=== PATIENT | female | born 1945 | race Caucasian/White ===

== ENCOUNTER → 2017-07-05 | Outpatient (CLI) | payer OTHER | LOC: M.RAD 13:29 | DX: Z12.31 Encounter for screening mammogram for malignant neoplasm of breast (principal) ==

== ENCOUNTER → 2019-06-11 | Outpatient (CLI) | payer OTHER | LOC: M.RAD 13:34 | DX: N63.10 Unspecified lump in the right breast, unspecified quadrant (principal); R92.0 Mammographic microcalcification found on diagnostic imaging of breast ==

== ENCOUNTER → 2019-06-13 | Outpatient (CLI) | payer OTHER ==
--- NOTE | 2019-06-18 18:07 | PATH ---
[address] [address] PATHOLOGY RPT PROCEDURE Name: REMIGIO MCMAHON Room: [facility] MALIHA [place]#: [id number] Admission: 06/13/19 Date of : 47 Discharge: Report #: [id number] Path Case #: [id number] [facility] Accession Number: [id number] . 01 Material submitted: . breast - RIGHT BREAST, 10:00, 5CM FROM NIPPLE. Modifiers: right, 10:00 . 01 Clinical history: . 2.85 x 2.41 x 2.62 cm 10:00 5 cm from nipple . 02 Diagnosis: Right breast, 10:00, 5 cm from nipple, image guided core biopsies: - INFILTRATING LOBULAR CARCINOMA, INTERMEDIATE GRADE, SPANNING 6 MM. SEE COMMENT. (GISELLE:pit 06/15/2019) QTP 06/15/2019 1105 Local . 02 Comment: Specimen type: Image guided core biopsies Tumor site: Right breast 10:00, 5 cm from nipple Tumor quantitation: Approximately 75% of submitted tissues Histologic type: Lobular carcinoma Histologic grade: Intermediate (II/III) Tubules, nuclei and mitoses: 3, 3, 1 LVSI: Indeterminate Microcalcifications: Not identified Markers: Breast tumor profile pending Block: A1 . The tumor infiltrates in the classic lobular fashion as individual cells between adipocytes and with "American filing" and with occasional nests. No ductal carcinoma in situ is present. A focus indeterminate for lymphovascular invasion is noted in A1. Properly controlled immunohistochemical stains performed on A1 show the neoplastic cells to have the following characteristics, supporting the diagnosis: E-cadherin: Negative Keratin Jam: Positive . A1 will be submitted for breast tumor profile studies and will be the subject of an addendum report. . Reviewed with Dr. Yinka Graham who agrees with the diagnosis. Kanchan (acting [facility] Breast Navigator) notified at approximately 1445 on 06/15/2019. (GISELLE:[facility] 06/15/2019) . 02 Addendum: . Special studies report received from [facility], [facility] [place] [address] PATHOLOGY RPT PROCEDURE Name: REMIGIO MCMAHON [id number] Admission: 06/13/19 Date of : 47 Discharge: Report #: [id number] Path Case #: [id number] [place], [address], [address], on case [id number], labeled with their number [id number], dated 06/18/2019. . Breast/Prognostic Marker Analysis . Specimen Site: Right Breast, 10:00 (Biopsy), Infiltrating Lobular Carcinoma Specimen ID #: [id number] . ER (Estrogen Receptor) Present/Positive Percent: 90.00% Analysis: Manual Comments: Staining Intensity: Strong. . HI (Progesterone Receptor) Absent/Negative Percent: 0.00 Analysis: Manual Comments: Adequate external and internal positive controls are noted. . HER2 Not Over-Expressed Score: 1+ Analysis: Manual . Ki-67 Borderline Proliferation Percent: 15.00% Analysis: Manual . Time to Fixation (Cold Ischemic Time): 2 minutes Duration of Fixation: Greater than 6 and less than 72 hours Type of Fixative: 10% Neutral Buffered Formalin . Comments: ER/PgR testing at [facility] is performed in compliance with the ASCO/CAP Clinical Practice Guidelines. If the result for ER is less than 1% it is reported as Negative; if the ER result is 1-10% it is reported as Low Positive; if the ER result is greater than 10% it is reported as Positive. If the result for PgR is less than 1% it is reported as Negative; if the PgR result is equal to or greater than 1%, it is reported as Positive. . REF: Chrissy KH, Joao GARCIA, et al: Estrogen and Progesterone Receptor Testing in Breast Cancer. ASCO/CAP Guideline Update. DOI 10.5858/arpa.3016-4129-KL. . Whole slide image capture is performed [place] [address] PATHOLOGY RPT PROCEDURE Name: REMIGIO MCMAHON Room: [facility] MALIHA [place]#: [id number] Admission: 06/13/19 Date of : 47 Discharge: Report #: [id number] Path Case #: [id number] (Synchris) platform. Image analysis, if ordered, is performed using [employer] software. . at [facility] [facility] Adam Urias M.D. Pathologist . Methodology The HER2 Receptor protein expression is analyzed using the [place] HER2 rabbit monoclonal antibody (clone 4B5). This assay is used for diagnostic determination of the HER2 protein over-expression in paraffin embedded, formalin fixed breast cancer tissue on the [place] Benchmark. The specimen is processed using a secondary antibody-HRP conjugate detection system. The membrane staining of the tumor is determined either by manual score or image analysis. This antibody is intended for in vitro diagnostic use. The score is reported as 0, 1+, 2+, or 3+. This test is used for clinical purposes. . A rabbit monoclonal antibody (clone SP1) that recognized the Estrogen Receptor is used to perform immunohistochemistry on routinely fixed (formalin) paraffin embedded tissue on the [place] Benchmark. The specimen is processed using a secondary antibody-HRP conjugate detection system. The percentage of stained tumor nuclei is determined either manually or by image analysis. This test is intended for in vitro diagnostic use. This test is used for clinical purposes. . A rabbit monoclonal antibody (clone 1E2) that recognized the Progesterone Receptor is used to perform immunohistochemistry on routinely fixed (formalin) paraffin embedded tissue on the [place] Benchmark. The specimen is processed using a secondary antibody-HRP conjugate detection system. The percentage of stained tumor nuclei is determined either manually or by image analysis. This test is intended for in vitro diagnostic use. This test is used for clinical purposes. . A rabbit monoclonal antibody (clone 30-9) that recognized Ki67 is used to perform immunohistochemistry on routinely fixed (formalin) paraffin embedded tissue on the [place] Benchmark. The specimen is processed using a secondary antibody-HRP conjugate detection system. The percentage of stained tumor nuclei is determined either manually or by image analysis. This test is intended for in vitro diagnostic use. This test is used for clinical purposes. . Intended Use: This antibody is intended for in vitro diagnostic (IVD) use. HER2 (4B5) is a rabbit monoclonal antibody intended for the semi-quantitative detection of HER2 antigen in sections of formalin-fixed, paraffin embedded normal and [place] [address] PATHOLOGY RPT PROCEDURE Name: REMIGIO MCMAHON Room: [facility]#: [id number] Admission: 06/13/19 Date of : 47 Discharge: Report #: [id number] Path Case #: [id number] This antibody is intended for in vitro diagnostic (IVD) use. Estrogen Receptor (ER) (SP1) is a rabbit monoclonal antibody (IgG) that is intended for the qualitative detection of estrogen receptor (ER) antigen in sections of formalin-fixed, paraffin-embedded tissue. ER is a rabbit monoclonal antibody that recognizes human estrogen receptor alpha. . This antibody is intended for in vitro diagnostic (IVD) use. Progesterone Receptor (HI) (1E2) is a rabbit monoclonal antibody (IgG) that is intended for the qualitative detection of progesterone receptor (HI) antigen in sections of formalin fixed, paraffin embedded tissue. HI is a rabbit monoclonal antibody that recognizes the A and B forms of the human progesterone receptor. . This antibody is intended for in vitro diagnostic (IVD) use. Ki-67 (30-9) is a rabbit monoclonal antibody (IgG) directed against C-terminal portion of Ki-67 antigen. Staining for Ki-67 can be used to aid in assessing the proliferative activity of normal and neoplastic tissue. Ki-67 is a nuclear protein expressed in proliferating cells. During the cell cycle, the Ki-67 antigen is present in the G1, S, G2 and M phase but is absent in the G0 (quiescent phase). . . Disclaimer: This Test was performed by [facility] [facility] at [address], [address]. . [facility] is a business unit of [employer] a wholly-owned subsidiary of [employer]. . This assay has not been validated on decalcified tissues. Results should be interpreted with caution if this specimen was decalcified given the likelihood of false negativity on decalcified specimens. . Any image(s) that accompany this report is/are a sales development representative image(s) only and should not be used to render a diagnosis. . This interpretation is contingent on the specimen and the clinical information received. . For any special tests/stains performed, known positive cells or tissues are tested with each marker and examined to ensure positivity. Positive and negative internal controls, if present, react appropriately. . This analysis is an adjunct to the evaluation of the referring physician and does not represent a final diagnosis. . The immunohistochemistry tests performed at [employer] [facility] were validated on tissue fixed in 10% [place] [address] PATHOLOGY RPT PROCEDURE Name: REMIGIO MCMAHON Room: [facility]#: [id number] Admission: 06/13/19 Date of : 47 Discharge: Report #: [id number] Path Case #: [id number] formalin. The performance characteristics of the tests performed on tissue processed in other fixatives is not known. . HER2 testing at [facility] [employer] is performed in compliance with the 2018 updated ASCO/CAP Clinical Practice Guideline Focused Update. If the result is EQUIVOCAL (2+), it must be confirmed by an alternative assay such as FISH or Dual TORY. REF: Dmitri SUAREZ, ARDHA Shepherd et al: Human Epidermal Growth Factor Receptor 2 Testing in Breast Cancer: ASCO/CAP Clinical Practice Guideline Focused Update. J Clin Oncol 36:8801-7249, 2018. . HER2 and ER/HI ASCO/CAP guidelines require fixation in neutral buffered formalin for a minimum of 6 and a maximum of 72 hours. Fixation times less than 6 hours may not adequately preserve cell proteins. Fixation times longer than 72 hours may cause excess cross-linking of proteins reducing the antigen available for staining. Either scenario can cause reduced staining; hence false negative results are possible and should be considered for these situations if the HER2 IHC score is less than 3+ or ER or HI is negative (no staining or <1% positive). It is recommended that specimens fixed longer than 72 hours with HER2 IHC scores less than 3+ be confirmed by HER2 FISH or Dual TORY. The time from biopsy/excision to fixation in formalin (cold ischemic time) must be less than 1 hour. Time to fixation (cold ischemic time) greater than 1 hour should be interpreted with caution. HER2 testing, mainly HER2 by FISH, is particularly vulnerable since excessive cold ischemic time results in preferential loss of HER2 probe signals that may lead to false negative results. . SCORE STAINING PATTERN IN TUMOR CELLS INTERPRETATION RESULTS 0 No staining observed or incomplete, faint membrane staining in less than or equal to 10% of tumor cells. Negative 1+ Incomplete, faint membrane staining in greater than 10% of tumor cells. Negative 2+ Weak to moderate complete membrane staining observed in greater than 10% of tumor cells. Equivocal* *Must be confirmed by alternative assay (IHC/FISH/Dual TORY) 3+ Intense, complete membrane staining in greater than 10% of tumor cells. Positive . A complete copy of the report is on file. . Professional and Technical services performed by [employer]. at [address] [address]. [place] [address] PATHOLOGY RPT PROCEDURE Name: REMIGIO MCMAHON Room: [facility]#: [id number] Admission: 06/13/19 Date of : 47 Discharge: Report #: [id number] Path Case #: [id number] . (GISELLE:amj 06/18/2019) . LBQ/06/18/2019 Addendum Electronically Signed by Kassandra Sam MD, Pathologist . 02 Electronically signed: . Severiano Baker MD, Pathologist NPI- [id number] . 01 Gross description: . The specimen is received in formalin, labeled "Remigio Mcmahon, right breast 10:00 5 cm FN" and consists of 2 distinct needle cores of yellow breast tissue measuring 0.6 cm in length each and 0.2 cm in diameter with their fragments (0.9 x 0.6 x 0.2 cm in aggregate). The cores are submitted in A1 and the aggregate in A2. The specimen was collected at 9:20 AM on 06/13/2019 and placed in formalin at 9:22 AM. The cold ischemic time is 2 minutes and the total formalin fixation time is greater than 6 hours less than 72 hours. (SDY; 06/13/2019) SYU/SYU 06/13/2019 1443 Local . 02 Pathologist provided ICD-10: C50.911 . 02 CPT . 525243, O77427, Q82920 Specimen Comment: A courtesy copy of this report has been sent to [phone] Specimen Comment: Report sent to DR CARL / DR MENDOZA Performed at: [address], [place] [id number] MD Tyler Duncan MD Phone: [phone] Performed at: 02 [facility] [address], [place], [place] [address] MD Severiano Baker MD Phone: [phone]
== END | disposition home or self-care (01) ==
LOC: M.ULTRA 08:11
DX: C50.911 Malignant neoplasm of unspecified site of right female breast (principal); N63.10 Unspecified lump in the right breast, unspecified quadrant; R92.8 Other abnormal and inconclusive findings on diagnostic imaging of breast

== ENCOUNTER → 2019-08-21 | Outpatient (CLI) | payer OTHER ==
--- NOTE | 2019-08-21 16:02 | 2DMMODE ---
[facility] [address] [place] [address] 2 D/M-MODE ECHOCARDIOGRAM Name: REMIGIO HAYS Room: [facility]#: [id number] Admission: 08/21/19 Attend Phys: Hernandez Cooley MD Discharge: Date of : 47 Date of Service: 08/21/19 1600 Report #: [id number] THIS REPORT FOR: cc: Anupam Jain MD, Dean L. MD Liston, Michael J. MD [facility] ~ APPROVED REPORT Study performed: 08/21/2019 14:57:25 EXAM: Comprehensive 2D, Doppler, and color-flow Echocardiogram Patient Location: Out-Patient BSA: 1.94 HR: 65 bpm BP: 140/80 mmHg Other Information Study Quality: Good Indications Chemo Left Ventricle The left ventricle is normal size. There is normal LV segmental wall motion. There is normal left ventricular wall thickness. Left ventricular systolic function is normal. LVEF is 60-65%. Aortic Valve The aortic valve is normal in structure. Mitral Valve The mitral valve is normal in structure. Tricuspid Valve The tricuspid valve is normal in structure. Pulmonic Valve The pulmonary valve is normal in structure. Pericardium There is no pericardial effusion. <Conclusion> [facility] [address] [address] 2 D/M-MODE ECHOCARDIOGRAM Name: REMIGIO HAYS Room: [facility]#: [id number] Admission: 08/21/19 Attend Phys: Hernandez Cooley MD Discharge: Date of : 47 Date of Service: 08/21/19 1600 Report #: [id number] The left ventricle is normal size. There is normal left ventricular wall thickness. Left ventricular systolic function is normal. LVEF is 60-65%. There is normal LV segmental wall motion. There is no pericardial effusion. <ELECTRONICALLY SIGNED> By: Gabriel Serna MD, FACC 08/21/191599 99 99 Gabriel Serna MD, FACC /INF
== END ==
LOC: M.CRD 14:38
DX: C50.411 Malignant neoplasm of upper-outer quadrant of right female breast (principal); Z17.0 Estrogen receptor positive status [ER+]

== ENCOUNTER 2019-10-17 17:06 | Inpatient (IN) | payer OTHER ==
[~2019-10-17] VITALS: Ht 165.1 cm; Wt 83.9 kg
[2019-10-17 17:11] VITALS: BP 125/85
[2019-10-17] MEDS ORDERED: FISH OIL 1,0001 EAC9 PO (17:17)
[2019-10-17] MEDS ORDERED: CALCIUM500 MG PO (17:17)
[2019-10-17] MEDS ORDERED: LIVALO2 MG PO (17:17)
[2019-10-17] MEDS ORDERED: ASA81BEC PO (17:17)
[2019-10-17] MEDS ORDERED: DOXORUBICIN IV (17:19)
[2019-10-17] MEDS ORDERED: MACROBID 100 M100 MG PO (17:25)
[2019-10-17 18:01] LABS: PROTIME 10.8 Seconds (9.20-11.50)
[2019-10-17 18:02] LABS: CALCIUM 8.6 mg/dL (8.5-10.1); CREATININE 0.8 mg/dL (0.6-1.3); MPV 7.3 fl. (7.2-11.1); POTASSIUM 3.6 mmol/L (3.5-5.1); RDW-CV 14.5 % (10.5-14.5)
[2019-10-17 18:04] LABS: HEMATOCRIT 25.5 % (37.0-47.0); HEMOGLOBIN 9.1 gm/dL (12.0-15.0); MCH 31.9 pg (26.0-34.0); MCHC 35.6 g/dL (28.0-37.0); MCV 89.7 fL (80.0-100.0); NUCLEATED RBCS 1 /100WBC; PLATELET COUNT* 161 thou/uL (150-400); RBC 2.84 mil/uL (4.20-5.00)
[2019-10-17 18:09] LABS: WBC 0.3 thou/uL (4.0-11.0)
[2019-10-17 18:12] LABS: URINE BILIRUBIN NEGATIVE (Negative); URINE BLOOD 1+ (Negative); URINE CLARITY CLEAR; URINE COLOR YELLOW; URINE GLUCOSE-RANDOM NEGATIVE (Negative); URINE KETONES TRACE (Negative); URINE LEUKOCYTES-REFLEX 1+ (Negative); URINE NITRITE-REFLEX NEGATIVE (Negative); URINE PROTEIN NEGATIVE (Negative); URINE UROBILINOGEN 0.2 E.U./dl (0.2-1.0)
[2019-10-17 18:15] LABS: TOTAL BILIRUBIN 0.6 mg/dL (<0.1-1.0); TOTAL PROTEIN 6.5 g/dL (6.4-8.2)
[2019-10-17 18:27] LABS: BACTERIA-REFLEX >30 Many /HPF (None Seen); SQUAMOUS 0-3 Few /LPF (0-3); TRANSITIONAL EPITHEL CELL 0-3 Few /LPF (None Seen); URINE RBC 0-2 Rare /HPF (0-2)
[2019-10-17 18:28] LABS: CASTS None Seen /LPF (None Seen); CRYSTALS None Seen /LPF (None Seen)
[2019-10-17 19:13] LABS: ABSOLUTE LYMPHOCYTES 0.2 thou/uL (0.8-5.3); ABSOLUTE NEUTROPHILS 0.1 thou/uL (1.6-8.1)
[2019-10-17 19:14] LABS: PLATELET ESTIMATE ADEQUATE
[2019-10-17 21:20] VITALS: BP 119/69
[2019-10-17 21:30] VITALS: BP 108/71
[2019-10-18 03:41] VITALS: BP 121/72
[2019-10-18 06:40] LABS: MCH 31.4 pg (26.0-34.0); MPV 7.3 fl. (7.2-11.1)
[2019-10-18 06:42] LABS: BASOPHILS 5.6 %; EOSINOPHILS 0.4 %; LYMPHOCYTES 73.4 %; MCHC 34.6 g/dL (28.0-37.0); MCV 90.6 fL (80.0-100.0); NUCLEATED RBCS 0 /100WBC; PLATELET COUNT* 131 thou/uL (150-400); POLYS 11.6 %; RBC 2.54 mil/uL (4.20-5.00); RDW-CV 14.1 % (10.5-14.5)
[2019-10-18 06:43] LABS: CALCIUM 7.9 mg/dL (8.5-10.1); CREATININE 0.7 mg/dL (0.6-1.3); POTASSIUM 3.6 mmol/L (3.5-5.1)
[2019-10-18 06:51] LABS: ABSOLUTE LYMPHOCYTES 0.2 thou/uL (0.8-5.3)
[2019-10-18 06:52] LABS: WBC < 0.3 thou/uL (4.0-11.0)
[2019-10-18 09:00] VITALS: BP 105/64
--- NOTE | 2019-10-18 12:51 | EKG ---
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: : 1945 Requested By: Kana Leung Order Number: [id number] MD: Gabriel Serna Measurements Intervals [place] Rate: 94 P: 63 NV: 134 QRS: 28 QRSD: 90 T: 62 QT: 354 QTc: 443 Interpretive Statements Sinus rhythm Possible left atrial enlargement Abnormal R-wave progression, early transition Repol abnrm suggests ischemia, anterolateral No previous ECG available for comparison Electronically Signed On 10-18-2019 12:51:08 CDT by Gabriel Serna [email or web address] <ELECTRONICALLY SIGNED> By: Gabriel Serna MD, FAC 10/18/19 1251 1726 1726 Gabriel Serna MD, FAC /EPI
--- NOTE | 2019-10-18 15:10 | CON ---
[address] [address] CONSULTATION Name: REMIGIO HAYS Room: [address] IN M.R.#: [id number] Admission: 10/17/19 Attend Phys: Felix Hess MD Discharge: Date of : 47 Report #: [id number] THIS REPORT FOR: //name// cc: Anupam Jain MD, Dean L. MD ~ THIS REPORT FOR: //name// CC: Felix Jain DATE OF SERVICE: 10/18/2019 INFECTIOUS DISEASE CONSULTATION ATTENDING PHYSICIAN: Felix Hess MD REASON FOR EVALUATION: Febrile illness with neutropenia in a patient with recent chemotherapy. HISTORY OF PRESENT ILLNESS: Chart reviewed, patient examined. This is a 74-year-old woman with known history of breast cancer who is undergoing intensive chemotherapy. She noted that she has not had significant medicine related complications; however, was found to have fevers, was evaluated and was neutropenic with ANC of 100 and had experienced some degree of abdominal discomfort. Did have a nonproductive cough, some anorexia with poor p.o. intake. Screening evaluation noted urinalysis did have some moderate pyuria in spite of the neutropenia. Lactic acid 1.1. Chest x-ray, mild increased density in the right medial left lung bases. COVID testing was negative. CBC showed a white count of 300 total with an ANC of 100, H and H 9.1 and 25.5, platelets of 161. Blood cultures are sterile thus far. She was empirically started on combination therapy including ceftriaxone and vancomycin. She is not overtly toxic, or encephalopathic. ALLERGIES: STATINS. CURRENT MEDICATIONS: Include ceftriaxone, pantoprazole, vancomycin, enoxaparin, ondansetron, and vancomycin. PAST MEDICAL HISTORY: As described above, breast cancer currently on chemotherapy, thyroidectomy, . SOCIAL HISTORY: Nonsmoker, no ethanol, no illicit drug use. FAMILY HISTORY: Noncontributory. REVIEW OF SYSTEMS: Otherwise, unremarkable 10-point [place] [address] CONSULTATION Name: REMIGIO HAYS Room: [address] IN [facility]#: [id number] Admission: 10/17/19 Attend Phys: Felix Hess MD Discharge: Date of : 47 Report #: [id number] PHYSICAL EXAMINATION: GENERAL: She is alert, cooperative, appropriate. She is somewhat mildly chronically ill appearing, undernourished, in mild distress. VITAL SIGNS: Temperature 97.7 with a T-max in the last 24 hours 99.5, pulse 85, respirations 18, blood pressure 105/54. SKIN: Warm, dry, no rashes. HEENT: Normocephalic. Extraocular muscles intact. NECK: Supple. LUNGS: Diminished breath sounds. Occasional crackle at the bases. HEART: Regular. I do not appreciate a murmur. ABDOMEN: Soft, nontender, mildly distended. GENITOURINARY: Deferred. RECTAL: Deferred. LABORATORY DATA: As described above. Blood cultures sterile thus far. CBC: White count less than 0.3, ANC of 0.0 this morning, H and H 8.0 and 23.0, platelets of 131. Electrolytes: Sodium 133, potassium 3.6, chloride 100, bicarbonate 25, anion gap 8, BUN and creatinine 9 and 0.7. Urinalysis did show 16-25 white cells, greater than 30 bacteria. Liver functions show some mild elevation of AST of 70 twice the upper limits of normal, ALT of 122. Albumin of 3.0, total protein 6.5. Troponin less than 0.06. Lactic acid 1.1. ASSESSMENT: Fever with neutropenia in a patient with recent chemotherapy for breast cancer. I think the evidence at this point favors a complicated urinary tract infection, but with just gram-negative therapy in this setting, it is certainly a risk for becoming quite ill quickly. She notes she really has not felt improved with recent ____ hospitalization. We will monitor expectantly. <ELECTRONICALLY SIGNED> By: Fab George MD 10/18/19 1510 1219 1250Joasmita George MD /nt
[2019-10-18 15:57] VITALS: BP 129/71
[2019-10-18 21:09] VITALS: BP 108/63
[2019-10-19 05:28] LABS: NUCLEATED RBCS 2 /100WBC; PLATELET COUNT* 91 thou/uL (150-400); RBC 2.19 mil/uL (4.20-5.00)
[2019-10-19 05:29] LABS: MCH 31.6 pg (26.0-34.0); MCV 90.2 fL (80.0-100.0); MONOCYTES 16.4 %; MPV 7.9 fl. (7.2-11.1); POLYS 1.6 %; RDW-CV 14.5 % (10.5-14.5)
[2019-10-19 05:32] LABS: ABSOLUTE LYMPHOCYTES 0.2 thou/uL (0.8-5.3)
[2019-10-19 05:34] LABS: HEMATOCRIT 19.8 % (37.0-47.0); HEMOGLOBIN 6.9 gm/dL (12.0-15.0); WBC < 0.3 thou/uL (4.0-11.0)
[2019-10-19 07:45] VITALS: BP 119/70
[2019-10-19 12:39] VITALS: BP 107/62; BP 107/63; BP 110/72; BP 140/73
[2019-10-19 20:05] VITALS: BP 121/68
[2019-10-20 08:00] VITALS: BP 107/55
[2019-10-20 11:46] LABS: HEMATOCRIT 21.7 % (37.0-47.0); HEMOGLOBIN 7.6 gm/dL (12.0-15.0); MCH 31.8 pg (26.0-34.0); MCHC 35.1 g/dL (28.0-37.0); MCV 90.6 fL (80.0-100.0); MPV 8.2 fl. (7.2-11.1); NUCLEATED RBCS 0 /100WBC; PLATELET COUNT* 63 thou/uL (150-400); RDW-CV 14.5 % (10.5-14.5)
[2019-10-20 11:49] LABS: WBC 0.5 thou/uL (4.0-11.0)
[2019-10-20 11:59] LABS: CALCIUM 7.8 mg/dL (8.5-10.1); CREATININE 0.7 mg/dL (0.6-1.3); POTASSIUM 3.1 mmol/L (3.5-5.1)
[2019-10-20 12:04] LABS: ALBUMIN 2.4 g/dL (3.4-5.0); TOTAL BILIRUBIN 0.4 mg/dL (<0.1-1.0); TOTAL PROTEIN 5.4 g/dL (6.4-8.2)
[2019-10-20 12:26] LABS: ABSOLUTE LYMPHOCYTES 0.2 thou/uL (0.8-5.3); ABSOLUTE MONOCYTES 0.3 thou/uL (0.0-1.2); PLATELET ESTIMATE ADEQUATE
[2019-10-20 15:53] VITALS: BP 114/63
[2019-10-20 20:21] VITALS: BP 125/67
[2019-10-21 03:54] LABS: HEMATOCRIT 22.1 % (37.0-47.0); HEMOGLOBIN 7.8 gm/dL (12.0-15.0); MCHC 35.5 g/dL (28.0-37.0); MCV 90.1 fL (80.0-100.0); MPV 8.5 fl. (7.2-11.1); NUCLEATED RBCS 0 /100WBC; PLATELET COUNT* 55 thou/uL (150-400); RBC 2.46 mil/uL (4.20-5.00); RDW-CV 15.4 % (10.5-14.5)
[2019-10-21 04:27] LABS: CALCIUM 8.1 mg/dL (8.5-10.1); CREATININE 0.7 mg/dL (0.6-1.3); POTASSIUM 3.3 mmol/L (3.5-5.1)
[2019-10-21 04:28] LABS: WBC 1.3 thou/uL (4.0-11.0)
[2019-10-21 06:53] LABS: ABSOLUTE LYMPHOCYTES 0.3 thou/uL (0.8-5.3); ABSOLUTE MONOCYTES 0.2 thou/uL (0.0-1.2); ABSOLUTE NEUTROPHILS 0.8 thou/uL (1.6-8.1); PLATELET ESTIMATE DECREASED
[2019-10-21 07:50] VITALS: BP 104/74
[2019-10-21] MEDS ORDERED: CEFUROXIME500 MG PO (08:22)
[2019-10-21 09:16] VITALS: BP 125/67
--- NOTE | 2019-10-28 12:59 | IN ---
[address] [address] INTERIM NOTE Name: HAYS,REMIGIO M Room: [address] IN M.R.#: [id number] Admission: 10/17/19 Attend Phys: Felix Hess MD Discharge: 10/21/19 Date of : 47 Report #: [id number] THIS REPORT FOR: //name// cc: Anupam Jain MD, Dean L. MD ~ CC: Felix Jain DATE OF SERVICE: 10/18/2019 REQUESTING PHYSICIAN: Felix Hess MD REASON FOR CONSULTATION: Febrile neutropenia and breast cancer. HISTORY OF PRESENT ILLNESS: The patient is a pleasant 74-year-old woman who is undergoing adjuvant chemotherapy for high risk breast cancer. She received cycle #4 of Adriamycin and Cytoxan week ago. She developed frequency last Tuesday, she called Cancer Center. 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 On Tuesday, she started oral antibiotics. She does not remember which one. She called yesterday with complaints of chills and fever. She was directed to the Emergency Room. She is admitted to the hospital now with UTI, fever and neutropenia. Oncology consult is requested. She is doing okay today. She does not have complaints of dysuria. Denies hematuria. Denies flank pain. She continues to have weakness. Denies mouth sores. PAST MEDICAL HISTORY: Significant for breast cancer. Hypothyroidism. SOCIAL HISTORY: She is nonsmoker, and lives with her . REVIEW OF SYSTEMS: See above. PHYSICAL EXAMINATION: GENERAL: Reveals a well-developed, well-nourished female, not in acute distress. VITAL SIGNS: Blood pressure 120/60, heart rate is 98, temperature 97.7, respirations 18. HEENT: Does not reveal thrush. HEART: Normal S1, S2. LUNGS: Clear. ABDOMEN: Soft. No organomegaly. EXTREMITIES: No edema. MENTAL STATUS: Alert and oriented x 3. LABORATORY DATA: White count less than 0.3, hemoglobin 8.0, platelets 131. Sodium 133, potassium 3.8, BUN 9, creatinine 0.8. UA shows WBC 16-25, [place] [address] INTERIM NOTE Name: REMIGIO HAYS Room: [address]#: [id number] Admission: 10/17/19 Attend Phys: Felix Hess MD Discharge: 10/21/19 Date of : 47 Report #: [id number]. ASSESSMENT AND PLAN: 1. Neutropenia secondary to chemotherapy. The patient had Neulasta. Continue to monitor CBC with difficile at this point. No addition of growth factor is necessary. 2. Urinary tract infection. Agree with this management. Infectious Disease is on service. 3. Hyponatremia, most likely secondary to dehydration. Continue with hydration. 4. Anemia secondary to chemotherapy. Transfuse as needed. 5. Breast cancer, completed 4 cycles of Adriamycin, Cytoxan. She is to start Taxol in 2 weeks. Thank you very much for allowing me to participate in the care of this patient. <ELECTRONICALLY SIGNED> By: Hernandez Cooley MD 10/28/19 1259 1717 2048Hernandez Cooley MD /nt
== END 2019-10-21 11:38 | disposition home or self-care (01) | DRG 871 ==
LOC: M.ERS 17:06 → M.ORTHSURG 18:25 → M.TBA-ER 18:25 → M.ORTHSURG 21:25
PROVIDERS: Family Medicine; Internal Medicine Hematology & Oncology; ADMIT Internal Medicine; ATTEND Internal Medicine
PROC: 30233N1 Transfusion of Nonautologous Red Blood Cells into Peripheral Vein, Percutaneous Approach (ICD-10-PCS; principal; 2019-10-19)
DX: A41.9 Sepsis, unspecified organism (principal); J18.9 Pneumonia, unspecified organism; D61.810 Antineoplastic chemotherapy induced pancytopenia; N39.0 Urinary tract infection, site not specified; E87.1 Hypo-osmolality and hyponatremia; E03.9 Hypothyroidism, unspecified; D64.81 Anemia due to antineoplastic chemotherapy; C50.911 Malignant neoplasm of unspecified site of right female breast; T45.1X5A Adverse effect of antineoplastic and immunosuppressive drugs, initial encounter; Z20.828 Contact with and (suspected) exposure to other viral communicable diseases; Z79.899 Other long term (current) drug therapy; Z98.891 History of uterine scar from previous surgery; Z88.8 Allergy status to other drugs, medicaments and biological substances; Z79.82 Long term (current) use of aspirin; Z92.21 Personal history of antineoplastic chemotherapy; Y92.89 Other specified places as the place of occurrence of the external cause

== ENCOUNTER 2019-11-25 22:52 | Inpatient (IN) | payer OTHER ==
[~2019-11-25] VITALS: Ht 165.1 cm; Wt 79.7 kg
--- NOTE | ~2019-11-25 | CON ---
[address] [address] CONSULTATION Name: REMIGIO HAYS Room: [address] IN M.R.#: [id number] Admission: 11/26/19 Attend Phys: Wilber Tyler Discharge: Date of : 47 Report #: [id number] THIS REPORT FOR: //name// cc: Anupam Jain MD, Dean L. MD ~ THIS REPORT FOR: //name// CC: Anupam Rodriguez DATE OF SERVICE: 11/26/2019 CONSULT REQUESTED BY: Felix Hess MD INDICATION FOR CONSULTATION: Acute pulmonary emboli. HISTORY OF PRESENT ILLNESS: This is a 74-year-old female with past medical history includes a history of carcinoma of the breast. The patient has been undergoing chemotherapy. She only has a remote history of smoking, discontinued in the 1970s. The patient was recently admitted to this hospital in October. At that time, she was treated for neutropenic fever, suspected urinary tract infection, pneumonia was also considered; however, her chest x-rays from that time do not show large infiltrates and some small infiltrates may be present. The patient was treated briefly with vancomycin and cefepime and then was sent home and antibiotic Levaquin was recommended on discharge so my understanding is that this is the antibiotic she received; however, could not find the order for Levaquin itself. The patient is now admitted with acute worsening of shortness of breath. The patient also did have a significant cough, not much sputum. She had some chest pain with respirations as well; however, this was not a major complaint for her. She denied any fever or chills. No runny nose or sore throat. Some leg discomfort. Minor leg swelling. She did not have any nausea, vomiting, diarrhea or constipation. She does not report blood in her stools or black stools. REVIEW OF SYSTEMS: The patient answered to the negative for 12 questions for review of systems except as mentioned above. PAST MEDICAL HISTORY: Breast cancer, on chemotherapy; open heart surgery in the past, but this was for a defect and not for coronary artery disease; thyroidectomy; . The patient had an echocardiogram in August and shows a left ventricular ejection fraction of 60-65% and is unremarkable. SOCIAL HISTORY: There is a remote history of smoking[place] [address] CONSULTATION Name: REMIGIO HAYS Room: [address] IN [facility]#: [id number] Admission: 11/26/19 Attend Phys: Wilber Tyler Discharge: Date of : 47 Report #: [id number] was a light smoker back in the 1970s and has not been a smoker since then. No known history of heavy alcohol use or illegal drug use. CURRENT MEDICATIONS: List in [employer] reviewed. HOME MEDICATIONS: List in [facility] reviewed. Also, see discussion above. ALLERGIES: SHE HAS HAD A LEG CRAMPS WITH STATINS. FAMILY HISTORY: There is no pertinent family history. PHYSICAL EXAMINATION: GENERAL: She is alert, awake and oriented, does not appear to be in any distress at this time, she is reported to have had O2 saturations in the 80s on room air, currently is on 4 liters oxygen via nasal cannula and is having an O2 saturation around 94-95%.: She has a pulse of 80 and a blood pressure of 93/50 with a respiratory rate of 20. She is afebrile with a temperature of 36.1. Body mass index is 30.2. HEENT: Head is normocephalic and atraumatic. NECK: Does not show raised JVP, asymmetry, mass or lymph nodes. CHEST: Symmetrical expansion on inspection and palpation. On auscultation, breath sounds are bilaterally equal, decreased with prolonged expirations. I do not hear any added sounds. HEART: Regular. There is no murmur. ABDOMEN: Soft and nontender. EXTREMITIES: Lower extremities show trace edema. There is mild calf tenderness. SKIN: However, is dry and intact. NEUROLOGICAL: Moves all extremities bilaterally equally and spontaneously with no focal deficit identified. LABORATORY DATA: The patient's CT chest films as well as report are reviewed. There are pulmonary emboli noted. Also, there are florid pulmonary infiltrates, which appear to be atypical. The infiltrates are new compared with the patient's chest x-ray from October and do look atypical. The patient's CBC as well as chemistries in [facility] reviewed. Anemia is noted at least partly, this is chronic and dilutional. Chemistries showing significant decrease in potassium and magnesium level in [facility] reviewed. Troponin I was not elevated. Coagulation studies in [facility] reviewed. COVID-19 screen was negative. I have ordered a PCR, which is pending. I was told verbally that she has bilateral DVT in the lower extremities. The report is pending, however. ASSESSMENT AND PLAN: 1. Acute hypoxemic respiratory failure. In addition to having pulmonary emboli the patient has florid bilateral infiltrates, which are new compared with the x-ray performed in October, both of these are [place] [address] CONSULTATION Name: REMIGIO HAYS Room: [address] IN [facility]#: [id number] Admission: 11/26/19 Attend Phys: Wilber Tyler Discharge: Date of : 47 Report #: [id number] respiratory failure. 2. Acute pulmonary emboli with bilateral deep venous thrombosis. Await further input from Hematology. I will also request a GI review. If not contraindicated, then I agree with continuing with full dose anticoagulation. In case there is concern regarding the ability to continue anticoagulation residential then we will consider obtaining an IVC filter. 3. Pulmonary infiltrate/pneumonia. There are extensive bilateral infiltrates. These are new compared with studies done in October. Therefore, I recommend obtaining a COVID-19 PCR and I placed the patient in isolation. Pending the results, started broad-spectrum antibiotics including doxycycline as well as Zosyn. We will check more cultures and serologies. In case the patient's condition fails to improve or deteriorates, then I will have a low threshold of adding vancomycin. 4. Bronchospasm. I feel there is a component of this as well. I ordered Solu-Medrol overnight. We will reassess tomorrow morning. Until the patient's COVID-19 PCR is back, we will keep the patient on albuterol inhaler. We will subsequently assess as to whether we can switch him over to nebulizer. 5. Breast cancer, on chemotherapy. See discussion above. 6. Anemia. For now, I ordered Protonix IV b.i.d. Until it is clear and there is no upper GI bleed, I will give her the electrolyte replacement intravenously. Thanks for this consultation. By: [id number] [id number] Mckenzie MD /nt
[~2019-11-25 22:52] MED LIST: ASA81BEC PO; CALCIUM500 MG PO; CEFUROXIME500 MG PO; DOXORUBICIN IV; FISH OIL 1,0001 EAC9 PO; LIVALO2 MG PO; MACROBID 100 M100 MG PO
[2019-11-25 23:15] VITALS: BP 121/100
[2019-11-25 23:52] LABS: HEMATOCRIT 22.2 % (37.0-47.0); HEMOGLOBIN 7.7 gm/dL (12.0-15.0); MCH 33.7 pg (26.0-34.0); MCHC 34.8 g/dL (28.0-37.0); MCV 96.7 fL (80.0-100.0); MPV 9.2 fl. (7.2-11.1); NUCLEATED RBCS 1 /100WBC; PLATELET COUNT* 168 thou/uL (150-400); RBC 2.29 mil/uL (4.20-5.00); RDW-CV 19.4 % (10.5-14.5); WBC 3.2 thou/uL (4.0-11.0)
[2019-11-26 00:02] LABS: CALCIUM 8.9 mg/dL (8.5-10.1); CREATININE 0.9 mg/dL (0.6-1.3); POTASSIUM 3.2 mmol/L (3.5-5.1)
[2019-11-26 00:11] LABS: ALBUMIN 2.4 g/dL (3.4-5.0); INR 1.2; MAGNESIUM 1.5 mg/dL (1.8-2.4); PROTIME 12.2 Seconds (9.20-11.50); TOTAL BILIRUBIN 0.8 mg/dL (<0.1-1.0); TOTAL PROTEIN 6.6 g/dL (6.4-8.2)
[2019-11-26 03:21] LABS: ABSOLUTE LYMPHOCYTES 0.3 thou/uL (0.8-5.3); ABSOLUTE MONOCYTES 0.2 thou/uL (0.0-1.2); ABSOLUTE NEUTROPHILS 2.7 thou/uL (1.6-8.1); ANISOCYTOSIS 1+; CLUMPED PLTS FEW; LARGE PLATELETS OCCASIONAL
[2019-11-26 03:23] LABS: POIKILOCYTOSIS 1+; POLYCHROMASIA Occasional
[2019-11-26 03:44] VITALS: BP 111/78
[2019-11-26] MEDS ORDERED: B12 ACTIVE1000 MCG PO (04:17)
[2019-11-26 08:30] VITALS: BP 125/57
--- NOTE | 2019-11-26 09:35 | EKG ---
[place] [address] ELECTROCARDIOGRAM REPORT Name: REMIGIO HAYS Room: [address] ADM IN M.R.#: [id number] Admission: 11/26/19 Attend Phys: Jc Rodriguez Discharge: Date of : 47 Date of Service: 11/25/19 2317 Report #: [id number] THIS REPORT FOR: //name// [facility] ED Test Date: 2019-11-25 Test Time: 23:17:45 Pat Name: REMIGIO HAYS Department: Room: [facility] Gender: F [employer]: SONALI : 1945 Requested By: Tameka Roman Order Number: [id number] MD: Justen Gregorio Measurements Intervals Mears Rate: 111 P: 108 IL: 125 QRS: 75 QRSD: 85 T: 31 QT: 296 QTc: 402 Interpretive Statements Sinus tachycardia Atrial premature complex Probable left atrial enlargement RSR' in V1 or V2, right VCD or RVH Compared to ECG 10/17/2019 17:26:59 Atrial premature complex(es) now present Right ventricular hypertrophy now present Sinus rhythm no longer present Possible ischemia no longer present Electronically Signed On 11-26-2019 9:35:38 CDT by Justen Gregorio [email or web address] <ELECTRONICALLY SIGNED> By: Justen Gregorio MD, [facility] 11/26/19 0935 2317 2317 Justen Gregorio MD, [facility] /EPI
[2019-11-26 10:10] LABS: CALCIUM 8.4 mg/dL (8.5-10.1); CREATININE 0.7 mg/dL (0.6-1.3); MAGNESIUM 1.5 mg/dL (1.8-2.4); POTASSIUM 3.4 mmol/L (3.5-5.1)
[2019-11-26 12:11] VITALS: BP 93/50
--- NOTE | 2019-11-26 12:40 | 2DMMODE ---
[place] [address] 2 D/M-MODE ECHOCARDIOGRAM Name: HAYSREMIGIO M Room: [address] IN .R.#: [id number] Admission: 11/26/19 Attend Phys: Jc Rodriguez Discharge: Date of : 47 Date of Service: 11/26/19 1239 Report #: [id number] THIS REPORT FOR: cc: Anupam Jain MD, Dean L. MD Blick,Justen Atkinson MD [facility] ~ APPROVED REPORT Study performed: 11/26/2019 10:07:06 EXAM: Comprehensive 2D, Doppler, and color-flow Echocardiogram Patient Location: In-Patient Room #: 204 Status: routine BSA: 1.86 HR: 78 bpm BP: 111/78 mmHg Rhythm: NSR Other Information Study Quality: Fair Indications rule out PE, cancer 2D Dimensions IVSd: 10.14 (7-11mm) LVOT Diam: 20.08 (18-24mm) LVDd: 44.49 mm PWd: 10.14 (7-11mm) Ascending Ao: 37.38 (22-36mm) LVDs: 31.68 (25-40mm) Aortic Root: 40.67 mm Volumes Left Atrial Volume (Systole) LA ESV Index: 20.80 mL/m2 Aortic Valve AoV Peak Mitch.: 1.38 m/s AO Peak Gr.: 7.58 mmHg LVOT Max P.08 mmHg AO Mean Gr.: 4.03 mmHg LVOT Mean P.68 mmHg LVOT Max V: 1.42 m/s AO V2 VTI: 21.68 cm LVOT Mean V: 0.87 m/s IVAN (VTI): 3.25 cm2 LVOT V1 VTI: 22.24 [place] [address] 2 D/M-MODE ECHOCARDIOGRAM Name: REMIGIO HAYS Room: [address] IN .R.#: [id number] Admission: 11/26/19 Attend Phys: Jc Rodriguez Discharge: Date of : 47 Date of Service: 11/26/19 1239 Report #: [id number] Mitral Valve E/A Ratio: 0.69 MV Decel. Time: 214.05 ms MV E Max Mitch.: 0.50 m/s MV PHT: 62.07 ms MVA (PHT): 3.54 cm2 TDI E/Lateral E': 3.57 E/Medial E': 4.55 Medial E' Mitch.: 0.11 m/s Lateral E' Mitch.: 0.14 m/s Pulmonary Valve PV Peak Mitch.: 0.91 m/s PV Peak Gr.: 3.33 mmHg Tricuspid Valve RAP Estimate: 5.00 mmHg TR Peak Gr.: 34.93 mmHg RVSP: 39.00 mmHg PA Pressure: 39.00 mmHg Left Ventricle The left ventricle is normal size. There is normal LV segmental wall motion. There is normal left ventricular wall thickness. Left ventricular systolic function is normal. The left ventricular ejection fraction is within the normal range. LVEF is 55-60%. Grade I - abnormal relaxation pattern. Right Ventricle The right ventricle is normal size. The right ventricular systolic function is normal. Atria The left atrium size is normal. The right atrium size is normal. Aortic Valve The aortic valve is normal in structure. Trace aortic regurgitation. There is no aortic valvular stenosis. Mitral Valve The mitral valve is normal in structure. Trace mitral regurgitation. No evidence of mitral valve stenosis. Tricuspid Valve The tricuspid valve is normal in structure. Mild tricuspid regurgitation. estimated pa pressure 45 [place] [address] 2 D/M-MODE ECHOCARDIOGRAM Name: REMIGIO HAYS Room: [address] IN [facility].#: [id number] Admission: 11/26/19 Attend Phys: Jc Rodriguez Discharge: Date of : 47 Date of Service: 11/26/19 1239 Report #: [id number] Pulmonic Valve The pulmonary valve is normal in structure. There is trace pulmonic valvular regurgitation. Great Vessels The aortic root is normal in size. IVC is normal in size and collapses >50% with inspiration. Pericardium There is no pericardial effusion. <Conclusion> LVEF is 55-60%. Mild tricuspid regurgitation. estimated pa pressure 45 mm Hg <ELECTRONICALLY SIGNED> By: Justen Gregorio MD, FACC 11/26/19 1239 1239 1239 Justen Gregorio MD, FACC /INF
[2019-11-26 15:22] VITALS: BP 100/69; BP 106/64; BP 107/50; BP 125/66
[2019-11-26 20:36] LABS: HEMATOCRIT 23.4 % (37.0-47.0); HEMOGLOBIN 8.2 gm/dL (12.0-15.0); MCH 33.4 pg (26.0-34.0); MCHC 34.9 g/dL (28.0-37.0); MCV 95.6 fL (80.0-100.0); MPV 9.4 fl. (7.2-11.1); NUCLEATED RBCS 1 /100WBC; PLATELET COUNT* 151 thou/uL (150-400); RBC 2.45 mil/uL (4.20-5.00); RDW-CV 18.7 % (10.5-14.5); WBC 2.7 thou/uL (4.0-11.0)
[2019-11-26 20:44] LABS: MAGNESIUM 1.4 mg/dL (1.8-2.4)
[2019-11-26 21:30] VITALS: BP 94/52
[2019-11-26 22:17] LABS: ABSOLUTE LYMPHOCYTES 0.1 thou/uL (0.8-5.3); ABSOLUTE MONOCYTES 0.1 thou/uL (0.0-1.2); ABSOLUTE NEUTROPHILS 2.6 thou/uL (1.6-8.1)
[2019-11-26 22:18] LABS: ANISOCYTOSIS 1+; PLATELET ESTIMATE ADEQUATE
[2019-11-27 00:06] VITALS: BP 112/69
[2019-11-27 04:46] VITALS: BP 120/66
[2019-11-27 07:21] LABS: ABSOLUTE LYMPHOCYTES 0.1 thou/uL (0.8-5.3); ABSOLUTE MONOCYTES 0.1 thou/uL (0.0-1.2); ABSOLUTE NEUTROPHILS 2.2 thou/uL (1.6-8.1); EOSINOPHILS 0.1 %; HEMATOCRIT 21.9 % (37.0-47.0); HEMOGLOBIN 7.7 gm/dL (12.0-15.0); LYMPHOCYTES 4.7 %; MCH 33.6 pg (26.0-34.0); MCHC 35.1 g/dL (28.0-37.0); MCV 95.6 fL (80.0-100.0); MONOCYTES 4.5 %; MPV 8.8 fl. (7.2-11.1); NUCLEATED RBCS 0 /100WBC; PLATELET COUNT* 151 thou/uL (150-400); POLYS 89.7 %; RBC 2.29 mil/uL (4.20-5.00); RDW-CV 19.3 % (10.5-14.5); WBC 2.5 thou/uL (4.0-11.0)
[2019-11-27 07:37] LABS: CREATININE 0.7 mg/dL (0.6-1.3); POTASSIUM 3.9 mmol/L (3.5-5.1)
[2019-11-27 09:41] VITALS: BP 102/64
[2019-11-27 12:00] VITALS: BP 102/63
[2019-11-27 16:00] VITALS: BP 107/52
[2019-11-27 19:30] VITALS: BP 116/73
[2019-11-28] VITALS (7 sets, daily range): BP systolic 110–132; BP diastolic 64–87
[2019-11-28 07:24] LABS: ABSOLUTE LYMPHOCYTES 0.5 thou/uL (0.8-5.3); ABSOLUTE MONOCYTES 0.2 thou/uL (0.0-1.2); ABSOLUTE NEUTROPHILS 4.3 thou/uL (1.6-8.1); BASOPHILS 0.3 %; EOSINOPHILS 0.1 %; HEMOGLOBIN 8.4 gm/dL (12.0-15.0); LYMPHOCYTES 9.5 %; MCH 33.8 pg (26.0-34.0); MCV 96.6 fL (80.0-100.0); MONOCYTES 3.5 %; NUCLEATED RBCS 3 /100WBC; PLATELET COUNT* 183 thou/uL (150-400); POLYS 86.6 %; RBC 2.48 mil/uL (4.20-5.00); RDW-CV 19.6 % (10.5-14.5)
[2019-11-28 07:34] LABS: ALBUMIN 2.1 g/dL (3.4-5.0); CALCIUM 8.5 mg/dL (8.5-10.1); CREATININE 0.6 mg/dL (0.6-1.3); MAGNESIUM 1.8 mg/dL (1.8-2.4); POTASSIUM 3.3 mmol/L (3.5-5.1); TOTAL BILIRUBIN 0.7 mg/dL (<0.1-1.0); TOTAL PROTEIN 5.7 g/dL (6.4-8.2)
[2019-11-28 17:27] LABS: CALCIUM 8.4 mg/dL (8.5-10.1); CREATININE 0.8 mg/dL (0.6-1.3); MAGNESIUM 1.6 mg/dL (1.8-2.4)
[2019-11-29] VITALS (7 sets, daily range): BP systolic 108–143; BP diastolic 68–92
[2019-11-29 05:45] LABS: ABSOLUTE LYMPHOCYTES 0.3 thou/uL (0.8-5.3); ABSOLUTE MONOCYTES 0.2 thou/uL (0.0-1.2); BASOPHILS 0.3 %; EOSINOPHILS 0.2 %; HEMOGLOBIN 9.2 gm/dL (12.0-15.0); LYMPHOCYTES 5.2 %; MCH 33.2 pg (26.0-34.0); MCHC 34.1 g/dL (28.0-37.0); MCV 97.4 fL (80.0-100.0); MONOCYTES 2.8 %; MPV 8.2 fl. (7.2-11.1); NUCLEATED RBCS 3 /100WBC; PLATELET COUNT* 197 thou/uL (150-400); POLYS 91.5 %; RBC 2.78 mil/uL (4.20-5.00); RDW-CV 19.7 % (10.5-14.5); WBC 6.6 thou/uL (4.0-11.0)
[2019-11-29 06:14] LABS: ALBUMIN 2.3 g/dL (3.4-5.0); CALCIUM 8.4 mg/dL (8.5-10.1); POTASSIUM 4.6 mmol/L (3.5-5.1); TOTAL BILIRUBIN 0.8 mg/dL (<0.1-1.0); TOTAL PROTEIN 6.2 g/dL (6.4-8.2)
[2019-11-29 06:37] LABS: PREALBUMIN 14.9 mg/dL (18.0-35.7)
[2019-11-29 15:30] LABS: CALCIUM 9.1 mg/dL (8.5-10.1); CREATININE 0.8 mg/dL (0.6-1.3); POTASSIUM 4.2 mmol/L (3.5-5.1)
[2019-11-29 18:56] LABS: URINE BILIRUBIN NEGATIVE (Negative); URINE BLOOD NEGATIVE (Negative); URINE CLARITY CLEAR; URINE COLOR YELLOW; URINE GLUCOSE-RANDOM NEGATIVE (Negative); URINE KETONES NEGATIVE (Negative); URINE LEUKOCYTES-REFLEX NEGATIVE (Negative); URINE NITRITE-REFLEX NEGATIVE (Negative); URINE PROTEIN NEGATIVE (Negative); URINE SPECIFIC GRAVITY 1.015 (1.005-1.030); URINE UROBILINOGEN 0.2 E.U./dl (0.2-1.0)
[2019-11-30] VITALS (9 sets, daily range): BP systolic 93–115; BP diastolic 58–75
[2019-11-30 05:30] LABS: ABSOLUTE LYMPHOCYTES 0.2 thou/uL (0.8-5.3); ABSOLUTE MONOCYTES 0.2 thou/uL (0.0-1.2); ABSOLUTE NEUTROPHILS 5.2 thou/uL (1.6-8.1); BASOPHILS 0.2 %; HEMOGLOBIN 9.8 gm/dL (12.0-15.0); MCH 34.1 pg (26.0-34.0); MCHC 35.1 g/dL (28.0-37.0); MCV 97.1 fL (80.0-100.0); MONOCYTES 2.8 %; MPV 8.2 fl. (7.2-11.1); NUCLEATED RBCS 2 /100WBC; PLATELET COUNT* 198 thou/uL (150-400); RBC 2.89 mil/uL (4.20-5.00); RDW-CV 19.8 % (10.5-14.5); WBC 5.6 thou/uL (4.0-11.0)
[2019-11-30 05:59] LABS: ALBUMIN 2.4 g/dL (3.4-5.0); CALCIUM 8.9 mg/dL (8.5-10.1); CREATININE 1.1 mg/dL (0.6-1.3); MAGNESIUM 1.7 mg/dL (1.8-2.4); POTASSIUM 4.2 mmol/L (3.5-5.1); TOTAL BILIRUBIN 0.9 mg/dL (<0.1-1.0); TOTAL PROTEIN 6.2 g/dL (6.4-8.2)
--- NOTE | 2019-11-30 13:24 | 2DMMODE ---
[place] [address] 2 D/M-MODE ECHOCARDIOGRAM Name: HAYSREMIGIO Yoseph Room: [facility] IN .R.#: [id number] Admission: 11/26/19 Attend Phys: Jc Rodriguez Discharge: Date of : 47 Date of Service: 11/30/19 1323 Report #: [id number] THIS REPORT FOR: cc: Anupam Jain MD, Dean L. MD Holkins,Kuldip Koch MD [facility] ~ APPROVED REPORT Study performed: 11/30/2019 12:07:24 EXAM: Limited 2D, Doppler, and color-flow Echocardiogram Patient Location: In-Patient Room #: 204 Status: routine BSA: 1.83 HR: 84 bpm BP: 97/65 mmHg Rhythm: NSR Other Information Study Quality: Good Tricuspid Valve RAP Estimate: 5.00 mmHg TR Peak Gr.: 21.86 mmHg RVSP: 26.00 mmHg PA Pressure: 26.00 mmHg Left Ventricle The left ventricle is normal size. There is early systolic paradoxical septal motion There is normal left ventricular wall thickness. The left ventricular systolic function is normal. The left ventricular ejection fraction is within the normal range. LVEF is 50-55%. Right Ventricle Right ventricle is mildly dilated. The right ventricular systolic function is normal. Atria The left atrium size is normal. The right atrium size is normal. Aortic Valve The aortic valve is normal in structure. Trace aortic regurgitation. [address] [address] 2 D/M-MODE ECHOCARDIOGRAM Name: LISREMIGIO Hameed Room: [address] IN M.R.#: [id number] Admission: 11/26/19 Attend Phys: Jc Rodriguez Discharge: Date of : 47 Date of Service: 11/30/19 1323 Report #: [id number] Mitral Valve The mitral valve is normal in structure. Mild mitral regurgitation. Tricuspid Valve The tricuspid valve is normal in structure. Pulmonic Valve The pulmonary valve is normal in structure. Great Vessels The aortic root is normal in size. IVC is normal in size and collapses >50% with inspiration. Pericardium There is no pericardial effusion. <Conclusion> The left ventricle is normal size. There is normal left ventricular wall thickness. The left ventricular systolic function is normal. The left ventricular ejection fraction is within the normal range. LVEF is 50-55%. Right ventricle is mildly dilated. The left atrium size is normal. The aortic valve is normal in structure. The mitral valve is normal in structure. Mild mitral regurgitation. IVC is normal in size and collapses >50% with inspiration. There is early systolic paradoxical septal motion <ELECTRONICALLY SIGNED> By: Kuldip English MD, [facility] 11/30/19 1323 1323 1323 Kuldip English MD, [facility] /INF
[2019-11-30 14:57] LABS: BE 0.5 mmol/L (-2 to +3); PCO2 30.3 mmHg (35.0-45.0); pH 7.496 (7.340-7.450)
[2019-11-30 15:07] LABS: PO2 54.2 mmHg (75.0-100.0)
[2019-11-30 15:16] LABS: CALCIUM 9.1 mg/dL (8.5-10.1); CREATININE 0.9 mg/dL (0.6-1.3); POTASSIUM 3.7 mmol/L (3.5-5.1)
[2019-12-01] VITALS (15 sets, daily range): BP systolic 86–121; BP diastolic 56–76
[2019-12-01 03:15] LABS: HEMATOCRIT 26.6 % (37.0-47.0); HEMOGLOBIN 9.1 gm/dL (12.0-15.0); MCH 33.5 pg (26.0-34.0); MCHC 34.4 g/dL (28.0-37.0); MCV 97.3 fL (80.0-100.0); MPV 8.3 fl. (7.2-11.1); NUCLEATED RBCS 1 /100WBC; PLATELET COUNT* 191 thou/uL (150-400); RBC 2.73 mil/uL (4.20-5.00); RDW-CV 20.4 % (10.5-14.5); WBC 4.9 thou/uL (4.0-11.0)
[2019-12-01 03:35] LABS: ALBUMIN 2.5 g/dL (3.4-5.0); CALCIUM 8.5 mg/dL (8.5-10.1); CREATININE 1.1 mg/dL (0.6-1.3); MAGNESIUM 1.9 mg/dL (1.8-2.4); TOTAL BILIRUBIN 0.8 mg/dL (<0.1-1.0); TOTAL PROTEIN 6.1 g/dL (6.4-8.2)
[2019-12-01 03:37] LABS: POTASSIUM 4.9 mmol/L (3.5-5.1)
[2019-12-01 06:27] LABS: ABSOLUTE LYMPHOCYTES 0.1 thou/uL (0.8-5.3); ABSOLUTE MONOCYTES 0.1 thou/uL (0.0-1.2); ABSOLUTE NEUTROPHILS 4.7 thou/uL (1.6-8.1); PLATELET ESTIMATE ADEQUATE
[2019-12-01 06:28] LABS: ANISOCYTOSIS 2+; POLYCHROMASIA 1+
[2019-12-02] VITALS: BP 93/67
[2019-12-02 04:00] VITALS: BP 98/58
[2019-12-02 05:06] LABS: ABSOLUTE LYMPHOCYTES 0.1 thou/uL (0.8-5.3); ABSOLUTE MONOCYTES 0.2 thou/uL (0.0-1.2); ABSOLUTE NEUTROPHILS 5.1 thou/uL (1.6-8.1); BASOPHILS 0.2 %; HEMATOCRIT 26.4 % (37.0-47.0); HEMOGLOBIN 9.1 gm/dL (12.0-15.0); LYMPHOCYTES 2.3 %; MCH 33.7 pg (26.0-34.0); MCHC 34.3 g/dL (28.0-37.0); MCV 98.4 fL (80.0-100.0); MONOCYTES 3.1 %; MPV 8.3 fl. (7.2-11.1); NUCLEATED RBCS 1 /100WBC; PLATELET COUNT* 193 thou/uL (150-400); POLYS 94.4 %; RBC 2.69 mil/uL (4.20-5.00); RDW-CV 19.9 % (10.5-14.5); WBC 5.4 thou/uL (4.0-11.0)
[2019-12-02 05:16] LABS: ALBUMIN 2.3 g/dL (3.4-5.0); POTASSIUM 4.5 mmol/L (3.5-5.1); TOTAL BILIRUBIN 0.7 mg/dL (<0.1-1.0); TOTAL PROTEIN 5.6 g/dL (6.4-8.2)
[2019-12-02 05:18] LABS: PREALBUMIN 18.9 mg/dL (18.0-35.7)
[2019-12-02 08:42] VITALS: BP 127/78
[2019-12-02 11:22] VITALS: BP 105/71
[2019-12-02 16:37] VITALS: BP 118/74
[2019-12-02 20:00] VITALS: BP 116/76
[2019-12-03] VITALS: BP 141/63
[2019-12-03 04:02] VITALS: BP 115/73
[2019-12-03 04:57] LABS: ALBUMIN 2.2 g/dL (3.4-5.0); CALCIUM 8.8 mg/dL (8.5-10.1); CREATININE 0.8 mg/dL (0.6-1.3); TOTAL BILIRUBIN 0.6 mg/dL (<0.1-1.0); TOTAL PROTEIN 5.3 g/dL (6.4-8.2)
[2019-12-03 05:11] LABS: ABSOLUTE LYMPHOCYTES 0.1 thou/uL (0.8-5.3); ABSOLUTE MONOCYTES 0.2 thou/uL (0.0-1.2); BASOPHILS 0.1 %; HEMATOCRIT 26.4 % (37.0-47.0); MCH 33.4 pg (26.0-34.0); MCHC 34.1 g/dL (28.0-37.0); MCV 98.2 fL (80.0-100.0); MONOCYTES 3.4 %; MPV 7.9 fl. (7.2-11.1); NUCLEATED RBCS 0 /100WBC; PLATELET COUNT* 182 thou/uL (150-400); POLYS 94.5 %; RBC 2.69 mil/uL (4.20-5.00); WBC 5.3 thou/uL (4.0-11.0)
[2019-12-03 05:19] LABS: PREALBUMIN 21.2 mg/dL (18.0-35.7)
[2019-12-03 08:00] VITALS: BP 121/76
[2019-12-03 11:30] VITALS: BP 114/79
[2019-12-03 16:00] VITALS: BP 106/71
[2019-12-03 20:00] VITALS: BP 105/68
[2019-12-04] VITALS: BP 108/71
[2019-12-04 04:00] VITALS: BP 102/66
[2019-12-04 05:45] LABS: NUCLEATED RBCS 0 /100WBC
[2019-12-04 05:47] LABS: HEMATOCRIT 28.2 % (37.0-47.0); HEMOGLOBIN 9.8 gm/dL (12.0-15.0); MCH 33.9 pg (26.0-34.0); MCHC 34.9 g/dL (28.0-37.0); MCV 97.3 fL (80.0-100.0); PLATELET COUNT* 190 thou/uL (150-400); RDW-CV 19.5 % (10.5-14.5); WBC 4.9 thou/uL (4.0-11.0)
[2019-12-04 06:05] LABS: ALBUMIN 2.4 g/dL (3.4-5.0); CALCIUM 8.5 mg/dL (8.5-10.1); CREATININE 0.9 mg/dL (0.6-1.3); POTASSIUM 3.7 mmol/L (3.5-5.1); TOTAL BILIRUBIN 0.7 mg/dL (<0.1-1.0); TOTAL PROTEIN 5.9 g/dL (6.4-8.2)
[2019-12-04 07:58] LABS: ABSOLUTE LYMPHOCYTES 0.2 thou/uL (0.8-5.3); ABSOLUTE MONOCYTES 0.4 thou/uL (0.0-1.2); ABSOLUTE NEUTROPHILS 4.3 thou/uL (1.6-8.1)
[2019-12-04 08:00] VITALS: BP 130/78
[2019-12-04 08:00] LABS: MACROCYTES 1+; PLATELET ESTIMATE ADEQUATE
[2019-12-04 12:00] VITALS: BP 110/69
[2019-12-04 16:00] VITALS: BP 134/82
[2019-12-04 20:00] VITALS: BP 138/74
[2019-12-05] VITALS: BP 114/73
[2019-12-05 04:00] VITALS: BP 92/55
[2019-12-05 05:08] LABS: ABSOLUTE LYMPHOCYTES 0.3 thou/uL (0.8-5.3); ABSOLUTE MONOCYTES 0.2 thou/uL (0.0-1.2); ABSOLUTE NEUTROPHILS 6.6 thou/uL (1.6-8.1); BASOPHILS 0.2 %; EOSINOPHILS 0.3 %; HEMATOCRIT 28.7 % (37.0-47.0); HEMOGLOBIN 10.3 gm/dL (12.0-15.0); MCH 34.7 pg (26.0-34.0); MCHC 35.7 g/dL (28.0-37.0); MCV 97.2 fL (80.0-100.0); MONOCYTES 2.9 %; MPV 8.2 fl. (7.2-11.1); NUCLEATED RBCS 0 /100WBC; PLATELET COUNT* 190 thou/uL (150-400); POLYS 92.6 %; RBC 2.96 mil/uL (4.20-5.00); RDW-CV 19.2 % (10.5-14.5); WBC 7.2 thou/uL (4.0-11.0)
[2019-12-05 05:34] LABS: ALBUMIN 2.7 g/dL (3.4-5.0); CALCIUM 8.9 mg/dL (8.5-10.1); CREATININE 0.9 mg/dL (0.6-1.3); POTASSIUM 4.2 mmol/L (3.5-5.1); TOTAL BILIRUBIN 0.7 mg/dL (<0.1-1.0); TOTAL PROTEIN 5.8 g/dL (6.4-8.2)
[2019-12-05 08:00] VITALS: BP 109/70
[2019-12-05 12:24] VITALS: BP 110/69
[2019-12-05 17:06] VITALS: BP 119/79
[2019-12-05 20:00] VITALS: BP 94/62
[2019-12-06] VITALS: BP 111/74
[2019-12-06 04:00] VITALS: BP 122/75
[2019-12-06 05:33] LABS: ABSOLUTE LYMPHOCYTES 0.2 thou/uL (0.8-5.3); ABSOLUTE MONOCYTES 0.2 thou/uL (0.0-1.2); ABSOLUTE NEUTROPHILS 6.6 thou/uL (1.6-8.1); BASOPHILS 0.1 %; HEMATOCRIT 27.5 % (37.0-47.0); HEMOGLOBIN 9.4 gm/dL (12.0-15.0); LYMPHOCYTES 2.5 %; MCH 33.7 pg (26.0-34.0); MCHC 34.2 g/dL (28.0-37.0); MCV 98.8 fL (80.0-100.0); MONOCYTES 2.2 %; MPV 8.2 fl. (7.2-11.1); NUCLEATED RBCS 0 /100WBC; PLATELET COUNT* 165 thou/uL (150-400); POLYS 95.2 %; RBC 2.78 mil/uL (4.20-5.00); RDW-CV 19.1 % (10.5-14.5)
[2019-12-06 06:16] LABS: ALBUMIN 2.5 g/dL (3.4-5.0); CREATININE 0.7 mg/dL (0.6-1.3); POTASSIUM 3.9 mmol/L (3.5-5.1); TOTAL BILIRUBIN 0.7 mg/dL (<0.1-1.0); TOTAL PROTEIN 5.5 g/dL (6.4-8.2)
[2019-12-06 08:00] VITALS: BP 113/71
[2019-12-06 11:30] VITALS: BP 127/68
[2019-12-06 16:58] VITALS: BP 122/76
[2019-12-06 19:45] VITALS: BP 111/73
[2019-12-07 00:50] VITALS: BP 119/74
[2019-12-07 04:39] VITALS: BP 122/74
[2019-12-07 05:19] LABS: ABSOLUTE LYMPHOCYTES 0.1 thou/uL (0.8-5.3); ABSOLUTE MONOCYTES 0.2 thou/uL (0.0-1.2); ABSOLUTE NEUTROPHILS 7.6 thou/uL (1.6-8.1); BASOPHILS 0.1 %; HEMOGLOBIN 9.7 gm/dL (12.0-15.0); LYMPHOCYTES 1.7 %; MCH 33.6 pg (26.0-34.0); MCHC 34.6 g/dL (28.0-37.0); MCV 97.2 fL (80.0-100.0); MONOCYTES 2.6 %; MPV 7.7 fl. (7.2-11.1); NUCLEATED RBCS 0 /100WBC; PLATELET COUNT* 165 thou/uL (150-400); POLYS 95.6 %; RBC 2.88 mil/uL (4.20-5.00)
[2019-12-07 05:52] LABS: ALBUMIN 3.3 g/dL (3.4-5.0); CALCIUM 8.9 mg/dL (8.5-10.1); CREATININE 0.7 mg/dL (0.6-1.3); POTASSIUM 3.2 mmol/L (3.5-5.1); TOTAL BILIRUBIN 0.9 mg/dL (<0.1-1.0); TOTAL PROTEIN 6.1 g/dL (6.4-8.2)
[2019-12-07 08:00] VITALS: BP 124/81
[2019-12-07 11:46] VITALS: BP 122/86
[2019-12-07 15:49] VITALS: BP 123/78
[2019-12-07 19:45] VITALS: BP 111/68
[2019-12-08 00:25] VITALS: BP 113/73
[2019-12-08 04:00] VITALS: BP 126/81
[2019-12-08 04:27] LABS: HEMATOCRIT 27.7 % (37.0-47.0); HEMOGLOBIN 9.5 gm/dL (12.0-15.0); MCH 33.6 pg (26.0-34.0); MCHC 34.3 g/dL (28.0-37.0); MCV 97.9 fL (80.0-100.0); MPV 7.3 fl. (7.2-11.1); NUCLEATED RBCS 0 /100WBC; PLATELET COUNT* 149 thou/uL (150-400); RBC 2.83 mil/uL (4.20-5.00); RDW-CV 18.6 % (10.5-14.5); WBC 11.9 thou/uL (4.0-11.0)
[2019-12-08 04:45] LABS: ALBUMIN 3.1 g/dL (3.4-5.0); CALCIUM 9.2 mg/dL (8.5-10.1); CREATININE 0.6 mg/dL (0.6-1.3); POTASSIUM 3.9 mmol/L (3.5-5.1); TOTAL BILIRUBIN 0.8 mg/dL (<0.1-1.0)
[2019-12-08 06:08] LABS: ABSOLUTE LYMPHOCYTES 0.4 thou/uL (0.8-5.3); ABSOLUTE MONOCYTES 0.4 thou/uL (0.0-1.2); ABSOLUTE NEUTROPHILS 11.2 thou/uL (1.6-8.1); ANISOCYTOSIS Occasional; PLATELET ESTIMATE DECREASED; TOXIC GRANULATION 1+
[2019-12-08 08:00] VITALS: BP 125/79
[2019-12-08 11:57] VITALS: BP 114/81
[2019-12-08 15:44] VITALS: BP 134/82
== END 2019-12-08 16:40 | disposition short-term general hospital (02) | DRG 177 ==
LOC: M.ERS 22:52 → M.TBA-ER 11-26 01:45 → M.2W 11-26 01:45 → M.ICU 11-30 19:43 → M.2W 12-01 14:22
PROVIDERS: Emergency Medicine; Internal Medicine; Internal Medicine Critical Care Medicine; ADMIT Internal Medicine; ATTEND Internal Medicine
PROC: 30233N1 Transfusion of Nonautologous Red Blood Cells into Peripheral Vein, Percutaneous Approach (ICD-10-PCS; principal; 2019-11-26)
PROC: 5A09357 Assistance with Respiratory Ventilation, Less than 24 Consecutive Hours, Continuous Positive Airway Pressure (ICD-10-PCS; 2019-11-30)
PROC: 5A09357 Assistance with Respiratory Ventilation, Less than 24 Consecutive Hours, Continuous Positive Airway Pressure (ICD-10-PCS; 2019-12-01)
PROC: 5A09357 Assistance with Respiratory Ventilation, Less than 24 Consecutive Hours, Continuous Positive Airway Pressure (ICD-10-PCS; 2019-12-06)
PROC: 5A09357 Assistance with Respiratory Ventilation, Less than 24 Consecutive Hours, Continuous Positive Airway Pressure (ICD-10-PCS; 2019-12-08)
DX: J15.6 Pneumonia due to other Gram-negative bacteria (principal); I26.99 Other pulmonary embolism without acute cor pulmonale; J96.01 Acute respiratory failure with hypoxia; E43 Unspecified severe protein-calorie malnutrition; I82.441 Acute embolism and thrombosis of right tibial vein; E22.2 Syndrome of inappropriate secretion of antidiuretic hormone; Z20.828 Contact with and (suspected) exposure to other viral communicable diseases; E89.0 Postprocedural hypothyroidism; I25.10 Atherosclerotic heart disease of native coronary artery without angina pectoris; E87.6 Hypokalemia; K21.9 Gastro-esophageal reflux disease without esophagitis; C50.919 Malignant neoplasm of unspecified site of unspecified female breast; T45.1X5A Adverse effect of antineoplastic and immunosuppressive drugs, initial encounter; D70.1 Agranulocytosis secondary to cancer chemotherapy; D64.81 Anemia due to antineoplastic chemotherapy; Z88.8 Allergy status to other drugs, medicaments and biological substances; Z85.3 Personal history of malignant neoplasm of breast; Z92.21 Personal history of antineoplastic chemotherapy; Z87.891 Personal history of nicotine dependence; Y92.89 Other specified places as the place of occurrence of the external cause